=== PATIENT | male | born 1960 | race Caucasian/White ===

== ENCOUNTER 2022-10-09 11:42 | Emergency (ER) | payer OTHER ==
--- OUTSIDE RECORDS SUMMARY | 2022-10-09 11:46 | XMS REPORT | Continuity of Care Document ---
:1960 Author Organization [facility] t Address [address] [place] [address] Care Team Providers Name Role Phone Serafin SHARPE, Ata Stafford Primary Care Physician Yissel SHARPE, Prem Cope Attending Clinician Abeba Atkinson RN Attending Clinician BETI COLE Attending Clinician Unavailable Dexter Andrade MD Attending Clinician Beti Cole MD Attending Clinician Carlos Sow MD Attending Clinician Doctor Unassigned, [place] Attending Clinician Unavailable Pcp, Patient Does Not Have A Attending Clinician [phone] Lab, Adc Fam Pob I Attending Clinician Unavailable Harjit Sparks Attending Clinician HARJIT BADILLO Attending Clinician Unavailable BETI COLE Admitting Clinician Unavailable Beti Cole MD Admitting Clinician Payers Payer Name Policy Type Policy Number Effective Date Expiration Date S ource Problems Condition Condition Condition Status Onset Resolution Last Treating Co mments Source Name Details Category Date Date Treatment Clinician Date COVID-19 COVID-19 Disease Active 2019-10 Unive rs 2-27 ity of 00:00: [address] Acute Acute Disease Active 2019-10 Univers respirator respirator 2- it y of y disease y disease 00:00: Stacia joyce due to due to 00 Medical COVID-19 COVID-19 Branch virus virus No known No known Disease Metho di active active st problems problems Hospit a l Allergies, Adverse Reactions, Alerts Allergy Allergy Status Severity Reaction(s) Onset Inactive Treating Comm ents Source Name Type Date Date Clinician NO KNOWN Drug Active Univers ALLERGIE Class ity of S [facility] Family History Family Member Diagnosis Comments Start Date Stop Date Source Natural father No Known Problems Met [facility] Natural mother No Known Problems Met [facility] Social History Social Habit Start Date Stop Date Quantity Comments Source Exposure to Yes [facility] SARS-CoV2 [facility] (event) Branch History SDOH Mandaen Alcohol Frequency Hospita l History SDCT [facility]anda[facility] Alcohol Std Hospital Drinks History [facility] Mandaen Alcohol Binge Hospital Alcohol intake 2020-12-26 2020-12-26 Current drinker Metho dist 00:00:00 00:00:00 of [facility] (finding) Alcohol Comment 2017-07-04 2017-07-04 socially Mandaen 00:00:00 00:00:00 Hospital Tobacco use and 2017-05-26 2017-05-26 Smokeless tobacco Me [facility] exposure 00:00:00 00:00:00 non-user Hospital Sex Assigned At [birth year] Mandaen 00:00:00 00:00:00 Hospital Smoking Status Start Date Stop Date Source Unknown if ever smoked Universit y of [facility] Never smoker [facility] Medications Ordered Filled Start Stop Current Ordering Indication Dosage Frequency Signature Comments Components Source Medication Medication Date Date Medication? Clinician (SIG) Name Name cyclobenzap Yes [id number] 10mg QD Take 1 Methodi rine 2-26 tablet (10 st (FLEXERIL) 00:00: mg total) Ho spita 10 mg 00 by mouth l tablet nightly as needed for muscle spasms. cyclobenzap Yes [id number] 10mg QD Take 1 Methodi rine 2-26 tablet (10 st (FLEXERIL) 00:00: mg total) Ho spita 10 mg 00 by mouth l tablet nightly as needed for muscle spasms. predniSONE 2020- No [id number] Take 2 Methodi (DELTASONE) 2- 03-[address] 20 mg 00:00: 05:59 (40 mg Hospita tablet 00 :00 total) by l mouth daily for 7 days, THEN 1 tablet (20 mg total) daily for 7 days. predniSONE 2020- No [id number] Take 2 Methodi (DELTASONE) 12-08- tablets st 20 mg 00:00: 00:00 (40 mg Hospita tablet 00 :00 total) by l mouth daily for 7 days, THEN 1 tablet (20 mg total) daily for 7 days. cyclobenzap 2020- No [id number] 10mg QD Take 1 Methodi rine 12-08 tablet (10 st (FLEXERIL) 00:00: 00:00 mg total) H ospita 10 mg 00 :00 by mouth l tablet nightly as needed for muscle spasms. lisinopriL 2019-10 Yes 10mg Take 10 mg U nivers 10 mg 2-29 by mouth ity of tablet 18:41: daily. [address] lisinopriL 2019-10 Yes 10mg Take 10 mg U nivers 10 mg -29 by mouth ity of tablet 18:41: daily. [address] lisinopriL 2019-10 Yes 10mg 10 mg, Unive rs (PRINIVIL,Z - Oral, ity of ESTRIL) 15:00: DAILY, [place] tablet 10 00 First dose Medi berhane mg on [facility] 10/10/20 at 0900, Until Discontinu ed, Routine KCL 2019-10 2020- No 40meq 40 mEq, Univers (KLOR-CON 12-10- Oral, ONCE ity of M20) tablet 14:00: 14:16 NOW, 1 Jus as 40 mEq 00 :00 dose, [facility] 10/09/20 Branch at 0800, Routine melatonin 2019-10 Yes 3mg 3 mg, Univers (MELATIN) 12-10 Oral, QHS, ity of tablet 3 mg 03:00: First dose [facility] 10/08/20 Branch at 2100, Until Discontinu ed, Routine remdesivir 2019-10 2020- No 100mg 100 mg, IV Univers 100 mg in 12-09 Infusion, ity of NaCl 0.9% 19:35: 19:44 Q24H, [place] ([place] 250 mL 25 :00 doses, Medica l infusion First dose Branc h on [place] 10/08/20 at 1345, Last dose on Fri10/11/20 at 1345, 250 mL
Lucretia ent informed of their inclusion in the Immtrac2 database for 5 years for purposes of emergency use of remdesivir . Yes
Con sent to extend their inclusion in the database obtained: Yes diphenhydrA 2019-10 Yes 25mg 25 mg, Univ ers MINE 12-09 Oral, ity of (BENADRYL) 19:07: QHSPRN[place] 25 55 Starting Medica l mg [facility] 10/08/20 at 1307, Until Discontinu ed, Routine, Sleep enoxaparin 2019-10 Yes 40mg 40 mg, Unive rs (LOVENOX) 12-08 Subcutaneo ity of injection 23:00[place] 00 First dose Medical on [facility] 10/07/20 at 1700, Until Discontinu ed, Routine lactated 2019-10 2020- No 1000mL at 999 Univ ers ringers IV 12-08 12- mL/hr, ity of infusion 21:30: 21:10 1,000 mL, Jus as 1,000 mL 00 :00 Intravenou Medic al s, ONCE, 1 Branch dose, [facility] 10/07/20 at 1530, Routine ibuprofen 2019-10 Yes 400mg 400 mg, Univ ers (IBU) 12-08 Oral, ity of tablet 400 20:14: Q6HPRN, [place] mg 23 Starting Medical [facility] 10/07/20 at 1414, Until Discontinu ed, Routine, fever, alternate with tylenol LISINOPRIL 2019-10 2020- No Take by Uni vers ORAL 12-08 mouth. ity of 20:02: 00:00 [place] 48 :00 Medical Branch lisinopriL 2019-10 2020- No Take by Uni vers 1 mg/mL 12-08 mouth. ity of Soln 20:02: 00:00 [place] 45 :00 Medical Branch LISINOPRIL 2019-10 Yes Take by Univ ers ORAL 12-08 mouth. ity of 19:39: [address] Branch LISINOPRIL 2019-10 Yes Take by Univ ers ORAL - mouth. ity of 19:39: [address] Branch traMADoL 2020-1 2020- No 50mg 50 mg, Univer s (ULTRAM) 12-08 Oral, ity of tablet 50 19:39: 19:38 Q8HPRN, [place] mg 27 :27 Starting Medical Sat Branch 10/07/20 at 1339, Until 10/09/20 at 1338, Routine, Pain (scale 4-6) acetaminoph 2019-10 Yes 650mg 650 mg, Un janet en 12-08 Oral, ity of (TYLENOL) 19:39: Q6HPRN, [place] tablet 650 16 Starting Medic al mg Sat Branch 10/07/20 at 1339, Until Discontinu ed, Routine, Pain (scale 1-3), fever dextrometho 2019-10 Yes 10mL 10 mL, Univ ers rphan-guaif 12-08 Oral, ity of enesin 19:37: Q6HPRN, [place] (ROBITUSSIN 17 Starting Medi berhane DM) 10-100 [facility] Branch mg/5 mL 10/07/20 solution 10 at 1337, mL Until Discontinu ed, Routine, Cough albuterol-i 2019-10 Yes 1{puff} 1 Puff, Univers pratropium 12-08 Inhalation ity of (COMBIVENT 19:15: , Q6H, [place] RESPIMAT) 00 First dose Medi berhane 20-100 on Sat Branch mcg/actuati 10/07/20 on inhaler at 1315, 1 Puff Until Discontinu ed, Routine
Is this order for a patient with suspected or confirmed COVID-19 infection? Yes acetaminoph 2019-10- No 975mg 975 mg, U nivers en 12-08 Oral, ity of (TYLENOL) 14:15: 13:08 ONCE, [place] tablet 975 00 :00 dose, Sat Medi berhane mg 10/07/20 Branch at 0815, JOHN Vital Signs Vital Name Observation Time Observation Value Comments Source Systolic blood 2020-10-10 14:23:00 137 mm[Hg] Univer sity of pressure [facility] Diastolic blood 2020-10-10 14:23:00 83 mm[Hg] Unive rsity of pressure [facility] Heart rate 2020-10-10 14:23:00 64 /min [facility] Body temperature 2020-10-10 14:23:00 37.11 Chen [facility] Respiratory rate 2020-10-10 14:23:00 18 /min [facility] Oxygen saturation in 2020-10-10 14:23:00 94 /min [facility] Arterial blood by [facility] Pulse oximetry Branch Body weight 2020-10-07 12:59:00 99.791 kg [facility] Procedures Procedure Date / Time Performing Clinician Source Performed XR THORACIC SPINE 2 VW 2020-12-08 20:17:44 Prem Caruso [facility] EXTRA TUBE LAV 2020-10-09 10:40:00 Beti Cole [facility] HEPATIC FUNCTION PANEL 2020-10-09 10:40:00 [id number] (ALB,T.PRO,BILI [place] T,BU/BC,ALT,AST,ALK PHOS) BASIC METABOLIC PANEL 2020-10-09 10:40:00 Sow [facility] (NA, K, CL, CO2, GLUCOSE, Medica l Branch BUN, CREATININE, CA) SEDIMENTATION RATE 2020-10-08 11:25:00 [facility] 2020-10-07 20:12:00 Sow [facility] MRSA / MSSA SCREEN BY 2020-10-07 20:12:00 [facility] DE[facility]NA[facility] 2020-10-07 20:12:00 Sow [facility] MAGNESIUM 2020-10-07 20:12:00 Shaikh [facility] C-REACTIVE PROTEIN 2020-10-07 20:12:00 Shaikh [facility] D-DIMER 2020-10-07 20:12:00 [facility] CHEST 1 2020-10-07 13:55:27 Dexter Andrade [place] o f [facility] BLOOD CULTURE SCREEN 2020-10-07 13:10:00 Dexter Andrade [facility] LACTIC ACID WHOLE BLOOD 2020-10-07 13:09:00 Dexter Andrade [facility] COVID-19 (ID NOW RAPID 2020-10-07 13:09:00 Dexter Andrade [facility] TESTING) Medical Branch LAB ONLY COVID 2020-10-07 13:09:00 Dexter Andrade [facility] INTERPRETATION [facility] ADC,CLC OR LCC ONLY - 2020-10-07 13:09:00 Dexter Andrade [facility] INFLUENZA A & B DIRECT Medical [place] ANTIGEN N-TERMINAL PRO-BNP 2020-10-07 13:06:00 Shaikh [facility] PHOSPHORUS 2020-10-07 13:06:00 [facility] FERRITIN SERUM 2020-10-07 13:06:00 [facility] TROPONIN I 2020-10-07 13:06:00 Dexter Andrade [facility] HEPATIC FUNCTION PANEL 2020-10-07 13:06:00 Dexter Andrade [facility] ([id number]) (ALB,T.PRO,BILI Medical Branch T,BU/BC,ALT,AST,ALK PHOS) BASIC METABOLIC PANEL 2020-10-07 13:06:00 Dexter Andrade [facility] (NA, K, CL, CO2, GLUCOSE, Medica l Branch BUN, CREATININE, CA) CBC WITH DIFF 2020-10-07 13:06:00 Dexter Andrade [facility] PROTHROMBIN TIME / INR 2020-10-07 13:06:00 Dexter Andrade [facility] ACTIVATED PARTIAL 2020-10-07 13:06:00 Dexter Andrade [facility] THRMPLAS CHANDA [facility] Branch HB ECG ROUTINE & RHYTHM 2020-10-07 13:04:06 Dexter Andrade [facility] NOTICE OF PRIVACY 2020-10-07 12:50:56 Doctor Fredis [facility] PRACTICES [place] [facility] [place] CONSENT/REFUSAL FOR 2020-10-07 12:50:46 Doctor Fredis [facility] DIAGNOSIS AND TREATMENT [place] [facility] [place] HOSPITAL ADMISSION 2020-10-07 06:01:00 Doctor Fredis [facility] Name [facility] [place] Plan of Care Planned Activity Planned Date Details Comments Source Future Scheduled 2022-09-28 COVID-19 VACCINE (#1) [facility] Test 05:29:22 [code = COVID-19 VACCINE (#1)] Future Scheduled 2022-09-28 Hepatitis C screening [facility] Test 05:29:22 (procedure) [code = 627149081] Future Scheduled 2022-09-28 COLONOSCOPY SCREENING [facility] Test 05:29:22 [code = COLONOSCOPY SCREENING] Future Scheduled 2022-09-28 SHINGLES VACCINES (1 Met [facility] Test 05:29:22 of 2) [code = SHINGLES VACCINES (1 of 2)] Future Scheduled 2022-09-28 INFLUENZA VACCINE [facility] Hospital Test 05:29:22 [code = INFLUENZA VACCINE] Future Scheduled 2021-08-15 COVID-19 VACCINE (1) Met [facility] Test 21:50:00 [code = COVID-19 VACCINE (1)] Future Scheduled 2021-08-15 Hepatitis C screening [facility] Test 21:50:00 (procedure) [code = 003263865] Future Scheduled 2021-08-15 COLONOSCOPY SCREENING [facility] Test 21:50:00 [code = COLONOSCOPY SCREENING] Future Scheduled 2021-08-15 SHINGLES VACCINES Method is Hospital Test 21:50:00 (#1) [code = SHINGLES VACCINES (#1)] Future Scheduled 2021-08-15 INFLUENZA VACCINE Method [facility] Hospital Test 21:50:00 [code = INFLUENZA VACCINE] Encounters Start End Encounter Admission Attending Care Care Encounter Source Date/Time Date/Time Type Type Clinicians Facility Department ID 2020-12-26 2020-12-26 Office Prem Caruso 1.2.840.1 [id number] Methodi 09:44:54 10:20:25 [address]y [address]807.1.[address] 3.430.2.7 Hospit a .3.431149 l .8 2020-12-26 2020-12-26 Travel 1.2.840.1 [id number] [id number] Methodi 00:00:00 00:00:[address] 3.430.2.7 0.2.7.3.698 Ho spita .3.647102 084.8 l .8 2020-12-08 2020-12-08 Office Yissel Prem 1.2.840.1 [id number] Methodi 13:55:03 14:47:38 Visit Anatoliy 93318.1.[address] 3.430.2.7 Hospit a .3.136536 l .8 2020-12-08 2020-12-08 Outpatient PREM CARUSO [facility] [id number] Jessie 00:00:00 00:00:[address] 2020-12-08 2020-12-08 Travel 1.2.840.1 1.2.811.618 [id number] Methodi 00:00:00 00:00:[address] 3.430.2.7 0.2.7.3.698 Ho spita .3.007586 084.8 l .8 2020-10-11 2020-10-11 Transition Sola Atkinson 1.2.840.114 [id number] Univers 00:00:00 00:00:00 of Care Abeba Alvarado 350.1.13.10 i ty [place] [id number] [facility] 403 Branch 2020-10-07 2020-10-10 Inpatient X GOLISANO [facility] [id number] Univers 06:57:00 12:30:00 BETI love [facility] 2020-10-07 2020-10-10 [facility] Dexter Andrade 1.2.840.1 [id number] Univers 06:57:00 12:30:00 Encounter Beti Cole 350.1.13.10 ity of [facility] 4.2.7.2.686 Jus as [phone] [facility] 099 Branch 2020-10-07 2020-10-07 Abstract CURLY Sow 1.2.840.114 [id number] Univers 00:00:00 00:00:00 Carlos PATTERSON 350.1.13.[address] [facility] 4.2.7.2.686 Jus as [id number] [address] 2020-10-07 2020-10-07 Patient CURLY Sow 1.2.840.114 [id number] Univers 00:00:00 00:00:00 Outreach Abdcastro PATTERSON 350.1.13.10 ity of HOSPITAL 4.2.7.2.686 Jus as [id number] [address] 2020-10-07 2020-10-07 Orders Doctor CURLY 1.2.840.114 [id number] Univers 00:00:00 00:00:00 Only Unassigned, YESENIA 350.1.13.10 ity of [place] [facility] 4.2.7.2.686 Jus as [id number] [address] 2020-09-28 2020-09-28 Telephone Pcp, CURLY 1.2.700.411 [id number] Univers 00:00:00 00:00:00 Patient YESENIA 350.1.13.10 it y of Does Not HOSPITAL 4.2.7.2.686 Te [facility] Have A [id number] [address] 2020-09-27 2020-09-27 Laboratory Lab, Adc Fam Pob I [facility] 1.2. 840.114 [id number] Univers 16:05:34 16:25:34 Only Harjit Badillo [facility] 350.1.13.10 ity of [place] 4.2.7.2.686 Jus as Professio [id number] [address] Office Building One 2020-09-27 2020-09-27 Outpatient R ABY [facility] [id number] Univers 16:00:00 16:00:00 HARJIT sanchezUT [facility] Results Test Description Test Time Test Comments Results Result Sour e Comments LAB ONLY COVID 2020-09-13 [facility] InterpretationInte Jorge Luis eligio Medical 23:40:00 rpretation/Recomme [place] ndations: Molecular NAAT Tests for Active Infection with the SARS-CoV-2 Virus: This result indicates a second test was positive, subsequent to an initial negative test for the SARS-CoV-2 virus that causes COVID-19 illness. This result indicates that the patient has been infected with the SARS-CoV-2 virus. The patient should be considered infectious and able to transmit the virus within the first 10 days after symptom onset in jujn-mm-qckrckjp illness and within the first 20 days after symptom onset in critical illness and/or severe immunocompromise. Asymptomatic patients are considered infectious for the first 10 days subsequent to the initial positive test result. From the onset of symptoms, if any, this result is likely to remain positive for 2 to 4 weeks. Tests for IgM and/or IgG Antibodies to SARS-CoV-2 Virus: Testing for IgM and IgG antibodies 1-3 weeks after illness onset will indicate whether the patient has produced antibodies to the virus. At this time, it is not known if the production of antibodies - specifically IgG antibodies - indicates whether the patient is immune to future infections with the SARS-CoV-2 virus. Interpretation Result Comments:These interpretation comments are based upon all COVID-19 testing the patient has had at [facility], including molecular NAAT testing (more commonly known as PCR testing and Rapid ID Now testing) and antibody testing. It does not take into account any testing that a patient has had outside of the [facility] medical record. [facility] LABORATORY SERVICESCOVID LdnzvtfYQJV-EcA-1 NAAT (no units) ? ? Date ? Value ? 09/27/2020 ? Not Detected ? SARS-CoV -2 Rapid ID NOW (no units) ? ? Date ? Value ? 10/07/2020 ? Positive (A) ? [facility] BASIC METABOLIC PANEL (NA, K, CL, CO2, GLUCOSE, BUN, 2020-09 11:30:00 CREATININE, CA) Test Item Value Reference Range Interpretation Comme nts NA (test code = 1235466809) 136 mmol/L 135-145 K (test code = 0648216234) 3.3 mmol/L 3.5-5 L CL (test code = 8617935300) 103 mmol/L 98-108 CO2 TOTAL (test code = 2696909890) 29 mmol/L 23-31 AGAP (test code = 8648063016) 2-16 BUN (test code = 4755784700) 21 mg/dL 7-23 GLUCOSE (test code = 8444126526) 93 mg/dL 70-110 CREATININE (test code = 0.60 mg/dL 0.6-1.25 5686317502) CALCIUM (test code = 3715300656) 8.2 mg/dL 8.6-10.6 L eGFR Calculation (Non- mL/min/1.73m2 Tunisian) (test code = 3094429904) eGFR Calculation ( mL/min/1.73m2 [place]ian) (test code = 6469763771) KATHLEEN (test code = KATHLEEN) Association of Glomerular Filtration Rate (GFR) and Staging of Kidney Disease* + +-------- + ------+| GFR (mL/min/1.73 m2) ?| With Kidney Damage ?| ?Without Kidney Damage+ +-- + +| ?>90 ?| ?Stage one ?| ? Normal ?+ +------- + -------+| ?60-89 ?| ?Stage two ?| ? Decreased GFR ? + +-------- + ------+| ?30-59 ?| ?Stage three ?| ? Stage three ? + +-------- + ------+| ?15-29 ?| ?Stage four ? | ? Stage four ?+ +------- + -------+| ?<15 (or dialysis) ? ?| ?Stage five ? | ? Stage five ?+ +------- + -------+ *Each stage assumes the associated GFR level has been in effect for at least three months. ?Stages 1 to 5, with or without kidney disease, indicate chronic kidney disease. Notes: Determination of stages one and two (with eGFR >59mL/min/1.73 m2) requires estimation of kidney damage for at least three months as defined by structural or functional abnormalities of the kidney, manifested by either:Pathological abnormalities or Markers of kidney damage (including abnormalities in the composition of the blood or urine or abnormalities in imaging tests). Lab Interpretation (test code = Abnormal 27934-9) [facility] (ALB,T.PRO,BILI T,BU/BC,ALT,AST,ALK PHOS)2020-10-09 11:30:00 Test Item Value Reference Range Interpretation Comments TOTAL BILI (test code = 0579306297) 0.6 mg/dL 0.1-1.1 BILI UNCON (test code = 8088839385) 0.5 mg/dL 0.1-1.1 BILI CONJ (test code = 8418250147) 0.0 mg/dL 0-0.3 T PROTEIN (test code = 4879438263) 5.7 g/dL 6.3-8.2 L ALBUMIN (test code = 0381108452) 3.0 g/dL 3.5-5 L ALK PHOS (test code = 6123382546) 86 U/L 34-122 ALTv (test code = 1742-6) 62 U/L 5-50 H AST(SGOT) (test code = 9147804459) 41 U/L 13-40 H Lab Interpretation (test code = Abnormal 43398-7) [facility] / MSSA SCREEN BY PCR, [id number] 18:31:00 Test Item Value Reference Range Interpretation Comments MSSA Screen by Geetha CAIN (test code Negative Negative = 29110-5) MRSA/MSSA Positive? (test code = No No [id number]) Lab Interpretation (test code = Normal 80482-5) [facility]-REACTIVE [id number] 16:38:00 Test Item Value Reference Range Interpretation Comments CRP (test code = 8316712105) 16.4 mg/dL <0.8 H Lab Interpretation (test code = Abnormal 38068-2) [facility]EDIMENTATION [id number] 12:54:00 Test Item Value Reference Range Interpretation Comments ESR (test code = See_Comment H [Automated message] [id number]) The system [employer] generated this result transmitted ref erence range: 0 - 10 m m/HR. The reference r morena was not used to interpret this result as normal/abnor mal. Lab Interpretation (test Abnormal code = 03687-3) [facility]IN2020-12-26 21:41:00 Test Item Value Reference Range Interpretation Comments Procalcitonin (test 0.13 ng/mL <0.07 H code = 5038971741) KATHLEEN (test code = KATHLEEN) INTERPRETATION OF PROCALCITONIN RESULTS IN ADULTS >= 18 YEARS OF AGE Initiation and discontinuation of antibiotics on patients with suspected or confirmed Lower Respiratory Tract Infection in Adults >= 18 years of age. + +-------- --------+ + -----+|Procalcitonin |Interpretation ?|Antibiotic ? ? |Considerations ? |ng/mL ? | ?|recommendation | ? + +-------- --------+ + -----+| <0.1 ? | Bacterial ? ? ?| Strongly ? ? ?| ? | ?| infection very | discouraged ? | Overruling: ? | ?| unlikely ? ? ? | ? | ? Clinically unstable ? ? ? + +-------- --------+ + ? High risk for adverse ? ? | <0.25 ?| Bacterial ? ? ?| Discouraged ? | ? outcome ? | ?| infection ? ? ?| ? | ? SEE IMPORTANT NOTE ?| ?| unlikely ? ? ? | ? | ? + +-------- --------+ + -----+| >=0.25 ? ? ? | Bacterial ? ? ?| Encouraged ? ?| ? | ?| infection ? ? ?| ? | ? | ?| likely ? | ? | Consider treatment failure ?+ +------- ---------+ -+ if levels does not decrease | >0.5 ? | Bacterial ? ? ?| Strongly ? ? ?| appropriately ? | ?| infection very | encouraged ? ?| ? | ?| likely ? | ? | ? + +-------- --------+ + -----+ Discontinuation of antibiotics in high-acuity patients with suspected or confirmed sepsis in Adults >= 18 years of age. + +-------- --------+ + -----+|Procalcitonin |Interpretation ?|Antibiotic ? ? |Considerations ? |ng/mL ? | ?|recommendation | ? + +-------- --------+ + -----+| <0.25 ?| Bacterial ? ? ?| Strongly ? ? ?| ? | ?| infection very | discouraged ? | Overruling: ? | ?| unlikely ? ? ? | ? | ? Clinically unstable ? ? ? + +-------- --------+ + ? High risk for adverse ? ? | <0.5 or drop | Bacterial ? ? ?| Discouraged ? | ? outcome ? | >80% from ? ?| infection ? ? ?| ? | ? SEE IMPORTANT NOTE ?| highest PCT ?| unlikely ? ? ? | ? | ? | level ?| ?| ? | ? + +-------- --------+ + -----+| >=0.5 ?| Bacterial ? ? ?| Encouraged ? ?| ? | ?| infection ? ? ?| ? | ? | ?| likely ? | ? | Consider treatment failure ?+ +------- ---------+ -+ if levels does not decrease | >1.0 ? | Bacterial ? ? ?| Strongly ? ? ?| appropriately ? | ?| infection very | encouraged ? ?| ? | ?| likely ? | ? | ? + +-------- --------+ + -----+ Percentage of drop of Procalcitonin calculation for Discontinuation of antibiotics in high-acuity patients with suspected or confirmed sepsis in Adults >= 18 years of age. ? Procalcitonin highest{}-Procalcitonin current{}Delta Procalcitonin = x100% ? Procalcitonin current {} IMPORTANT NOTE: Procalcitonin may be elevated without bacterial infection by physiologic stress related to trauma, fraser, chronic dialysis, metastatic cancer, surgery in the past seven days, malaria, some fungal infections, and some forms of vasculitis. The interpretation algorithm may not apply to patients with immunosuppression (equivalent of >10 mg of prednisone daily), HIV with CD4 cell count < 350 cells/mm3, active malignancy on systemic chemotherapy, solid organ transplant or hematopoietic stem cell transplantation, or hospital acquired pneumonia. Additionally, some clinical trials of procalcitonin have excluded patients with shock requiring vasopressor use, acute respiratory failure requiring mechanical ventilation, or those with known lung abscess/empyema. For further information please refer to:[email or web address] Lab Interpretation Abnormal (test code = 73724-3) [facility]ERRITIN [id number] 20:51:00 Test Item Value Reference Range Interpretation Comments FERRITIN (test code = 582.0 ng/mL 18-464 H 7376838682) KATHLEEN (test code = KATHLEEN) Biotin has been reported to cause a negative bias, interpret results relative to patient's use of biotin. Lab Interpretation (test Abnormal code = 29715-0) [facility] WestLACTATE [id number] 20:47:00 Test Item Value Reference Range Interpretation Comments LDH (test code = 5446236879) 791 U/L 300-600 H Lab Interpretation (test code = Abnormal 58731-8) [facility] WestMAGNESIUM2020-12-26 20:47:00 Test Item Value Reference Range Interpretation Comments MAGNESIUM (test code = 4503210555) 2.1 mg/dL 1.7-2.4 Lab Interpretation (test code = Normal 05649-5) [facility] WestD-[id number] 20:45:00 Test Item Value Reference Interpretation Comments Range D-DIMER (test code = See_Comment H [Autom ated 5354024510) message] The system which generated this result transmitted reference range : <0.50 ?g/mL (FEU). The reference range was not used to interpret this result as normal/abnormal . KATHLEEN (test code = This test may be KATHLEEN) used in conjunction with a clinical pretest probability (PTP) assessment model to exclude venous thromboembolism (VTE) in patients suspected of deep venous thrombosis (DVT) and pulmonary embolism (PE) A D-Dimer value less than 0.50 ?g/ml (FEU) has a negative predicative value of 96 to 100% (95% CI)and 97 to 100% (95% CI) as an aid in the diagnosis of deep vein thrombosis (DVT) and pulmonary embolism when there is low or moderate pretest probability of PE or DVT. D-Dimer values are expressed in initial fibrinogen equivalent units (FEU)" The assay results should be used with other information, including the clinical context, in forming a diagnosis. Lab Interpretation Abnormal (test code = 43834-5) [facility] WestN-TERMINAL [id number] 20:25:00 Test Item Value Reference Range Interpretation Comments NT-proBNP (test code 385 pg/mL See_Comment H [Autom ated = 6548748028) message] The system which generated this result transmitted reference range : <=125. The reference range was not used to interpret this result as normal/abnormal . KATHLEEN (test code = KATHLEEN) Biotin has been reported to cause a negative bias, interpret results relative to patient's use of biotin. Lab Interpretation Abnormal (test code = 07528-8) [facility] WestPHOSPHORUS2020-12-26 20:15:00 Test Item Value Reference Range Interpretation Comments PHOSPHORUS (test code = 2846218075) 2.6 mg/dL 2.5-5 Lab Interpretation (test code = Normal 64609-7) [facility] 1 [id number] 14:43:48 Hazy bilateral airspace opacities are noted, suggestive of multifocalatypical viral pneumonia such as Covid 19. Preliminary Report Dictated by Resident: Dov Montero MD., have reviewed this study and agree withthe above report.XR CHEST 1 VW HISTORY: 59 years-old; Male;dyspnea , Covid exposure, Covid positive COMPARISON: None FINDINGS: Scattered bilateral hazy airspace opacities are noted. There is no pleuraleffusion or pneumothorax.The cardiomediastinal silhouette is normal.No acute osseous abnormality is identified. Remodeling deformity of theposterior-lateral left seventh rib. [facility], Radiant Results Inft User - 10/07/2020 8:44 AM CSTXR CHEST 1 VWHISTORY: 59 years-old; Male; dyspnea , Covid exposure, Covid positiveCOMPARISON: NoneFINDINGS:Scattered bilateral hazy airspace opacities are noted. There is no pleuraleffusion or pneumothorax.The cardiomediastinal silhouette is normal.No acute osseous abnormality is identified. Remodeling deformity of theposterior-lateral left seventh rib.IMPRESSIONHazy bilateral airspace opacities are noted, suggestive of multifocalatypical viral pneumonia such as Covid 19.Preliminary Report Dictated by Resident: Dov Jacobo MD., have reviewed this study and agree withthe above report.[facility] WestADC,CLC OR LCC ONLY - INFLUENZA A & B DIRECT [id number] 13:43:00 Test Item Value Reference Range Interpretation Comments Influenza A (test code = 25195-2) Negative Negative Influenza B (test code = 24364-4) Negative Negative Lab Interpretation (test code = Normal 66445-6) [facility] WestTroponin [id number] 13:41:00 Test Item Value Reference Range Interpretation Comments TROPONIN I (test 0.027 ng/mL See_Comment [Automated code = 1597937530) message] The system which generated this result transmitted reference range : <=0.034. The reference range was not used to interpret this result as normal/abnormal . KATHLEEN (test code = Equal or Less than KATHLEEN) 0.034 ng/ml---Normal ?Note: Cardiac troponin begins to rise 3-4 hours after the onset of ischemia. Repeat in 4-6 hours if the sample was drawn within 3-4 hours of the onset of the symptom and found normal. Between 0.035 and 0.120 ng/mL--- Borderline. Questionable myocardial injury or necrosis ? ?Note: Serial measurement may be necessary to confirm or exclude the diagnosis of myocardial injury or necrosis; Clinical correlation (symptoms, EKGs, imaging studies, and others) required; Repeat in 4-6 hours if clinically indicated. ? Equal or Higher than 0.121 ng/mL---Abnormal. Myocardial Injury or Necrosis Likely ? Biotin has been reported to cause a negative bias, interpret results relative to patient's use of biotin. ? Lab Interpretation Normal (test code = 46236-6) [facility] WestCOVID-19 (ID NOW RAPID TESTING)2020-10-07 13:32:00 Test Item Value Reference Range Interpretation Comments SARS-CoV-2 Rapid ID NOW Positive Not Detected A (test code = 57694-0) KATHLEEN (test code = KATHLEEN) ID NOW COVID-19 Assay is an isothermal nucleic acid amplification test intended for the qualitative detection of nucleic acid from SARS-CoV-2 viral RNA in nasopharyngeal (VALIDATION ANALYST) specimens. It is used under Emergency Use Authorization (EUA) by FDA. The limit of detection (LOD) of the assay is 125 Genome Equivalents/mL. A positive result is indicative of the presence of SARS-CoV-2 RNA. ?Clinical correlation with patient history and other diagnostic information is necessary to determine patient infection status. A negative (Not Detected) result does not preclude SARS-CoV-2 infection. In patients with clinical symptoms and other tests that are consistent with SARS-CoV-2 infection, negative results should be treated as presumptive negative and a new specimen should be tested with alternative PCR molecular test. Invalid: Please collect a new specimen for repeat patient testing if clinically indicated. Lab Interpretation Abnormal (test code = 33152-6) [facility] (NA, K, CL, CO2, GLUCOSE, BUN, CREATININE, CA)2020-10-07 13:30:00 Test Item Value Reference Range Interpretation Comments NA (test code = 140 mmol/L 135-145 8213623001) K (test code = 3.1 mmol/L 3.5-5 L 9956038432) CL (test code = 98 mmol/L 98-108 3741050112) CO2 TOTAL (test code = 33 mmol/L 23-31 H 8898713150) AGAP (test code = 2-16 6617078889) BUN (test code = 18 mg/dL 7-23 6816164967) GLUCOSE (test code = 124 mg/dL 70-110 H 6865524165) CREATININE (test code = 0.91 mg/dL 0.6-1.25 6541869016) CALCIUM (test code = 9.5 mg/dL 8.6-10.6 8585669134) eGFR Calculation mL/min/1.73m2 (Non-) (test code = 3106237271) eGFR Calculation mL/min/1.73m2 () (test code = 5385199369) KATHLEEN (test code = KATHLEEN) Association of Glomerular Filtration Rate (GFR) and Staging of Kidney Disease* + --+ --+ ------+| GFR (mL/min/1.73 m2) ?| With Kidney Damage ?| ?Without Kidney Damage+ --------+ --------+ +| ?>90 ?| ?Stage one ?| ? Normal ?+ ---+ ---+ -------+| ?60-89 ?| ?Stage two ?| ? Decreased GFR ? + --+ --+ ------+| ?30-59 ?| ?Stage three ?| ? Stage three ? + --+ --+ ------+| ?15-29 ?| ?Stage four ? | ? Stage four ?+ ---+ ---+ -------+| ?<15 (or dialysis) ? ?| ?Stage five ? | ? Stage five ?+ ---+ ---+ -------+ *Each stage assumes the associated GFR level has been in effect for at least three months. ?Stages 1 to 5, with or without kidney disease, indicate chronic kidney disease. Notes: Determination of stages one and two (with eGFR >59mL/min/1.73 m2) requires estimation of kidney damage for at least three months as defined by structural or functional abnormalities of the kidney, manifested by either:Pathological abnormalities or Markers of kidney damage (including abnormalities in the composition of the blood or urine or abnormalities in imaging tests). Lab Interpretation Abnormal (test code = 79333-0) [facility] WestHepatic Function Panel (ALB, T.PRO, BILI T, BU/BC, ALT, AST, ALK PHOS)2020-10-07 13:30:00 Test Item Value Reference Range Interpretation Comments TOTAL BILI (test code = 8464136856) 0.6 mg/dL 0.1-1.1 BILI UNCON (test code = 0214156194) 0.5 mg/dL 0.1-1.1 BILI CONJ (test code = 0061824196) 0.0 mg/dL 0-0.3 T PROTEIN (test code = 6123448420) 6.7 g/dL 6.3-8.2 ALBUMIN (test code = 9975267809) 3.8 g/dL 3.5-5 ALK PHOS (test code = 2325094487) 107 U/L 34-122 ALTv (test code = 1742-6) 97 U/L 5-50 H AST(SGOT) (test code = 1006439090) 62 U/L 13-40 H Lab Interpretation (test code = Abnormal 23705-4) [facility] WestaPTT2020-12-26 13:30:00 Test Item Value Reference Range Interpretation Comments APTT Patient (test See_Comment [Automat ed code = 3173-2) message] The system which generated this result transmitted reference range : 23 - 38 Seconds . The reference range was not used to interpr et this result as normal/abnormal . KATHLEEN (test code = KATHLEEN) The [facility] patient population mean normal value for aPTT is 30 seconds. Lab Interpretation Normal (test code = 28303-4) [facility] WestProthrombin Time (PT) / [id number] 13:28:00 Test Item Value Reference Range Interpretation Comments PROTIME PATIENT (test See_Comment [Auto mated message] code = 5964-2) The system wh ich generated this result transmitted ref erence range: 12.0 - 1 4.7 Seconds. The re ference range was not u sed to interpret this result as normal/abnor mal. INR (test code = 6301-6) Nor mal INR <1.1; Warfarin Therap eutic range 2.0 to 3. 0 or 2.5 to 3.5, dep ending upon the indica tions. Lab Interpretation (test Normal code = 90299-8) [facility] WestLactic Acid Whole [id number] 13:23:00 Test Item Value Reference Range Interpretation Comments LACTIC ACID (test code = 2.15 mmol/L 9411710084) [facility] WestCB with [id number] 13:18:00 Test Item Value Reference Range Interpretation Comments WBC (test code = See_Comment [Automated 6690-2) message] The sy stem which generated this result transmitted reference range : 4.20 - 10.70 10*3/?L. The reference range was not used to interpret this result as normal/abnormal . RBC (test code = See_Comment [Automated 789-8) message] The sy stem which generated this result transmitted reference range : 4.26 - 5.52 10*6/?L. The reference range was not used to interpret this result as normal/abnormal . HGB (test code = 15.1 g/dL 12.2-16.4 718-7) HCT (test code = 45.1 % 38.4-49.3 4544-3) MCV (test code = 87.6 fL 81.7-95.6 787-2) MCH (test code = 29.3 pg 26.1-32.7 785-6) MCHC (test code = 33.5 g/dL 31.2-35 786-4) RDW-SD (test code = 38.6 fL 38.5-51.6 12826-6) RDW-CV (test code = 11.9 % 12.1-15.4 L 788-0) PLT (test code = See_Comment [Automated 777-3) message] The sy stem which generated this result transmitted reference range : 150 - 328 10*3/ ?L. The reference r morena was not used to interpret this result as normal/abnormal . MPV (test code = 9.7 fL 9.8-13 L 50148-5) NRBC/100 WBC (test See_Comment [Automat ed code = 7572562762) message] The system which generated this result transmitted reference range : 0.0 - 10.0 /100 WBCs. The refer ence range was not u sed to interpret th is result as normal/abnormal . NRBC x10^3 (test code <0.01 See_Comment [Auto mated = 6298124240) message] The s ystem which generated this result transmitted reference range : 10*3/?L. The reference range was not used to interpret this result as normal/abnormal . GRAN MAT (NEUT) % 89.5 % (test code = 770-8) IMM GRAN % (test code 0.30 % = 0714997368) LYMPH % (test code = 7.8 % 736-9) MONO % (test code = 2.3 % 5905-5) EOS % (test code = 0.0 % 713-8) BASO % (test code = 0.1 % 706-2) GRAN MAT x10^3(ANC) 8.03 10*3/uL 1.99-6.95 H (test code = 6240947678) IMM GRAN x10^3 (test 0.03 10*3/uL 0-0.06 code = 9737343300) LYMPH x10^3 (test code 0.70 10*3/uL 1.09-3.23 L = 731-0) MONO x10^3 (test code 0.21 10*3/uL 0.36-1.02 L = 742-7) EOS x10^3 (test code = <0.03 0.06-0.53 L 711-2) BASO x10^3 (test code <0.03 0.01-0.09 = 704-7) Lab Interpretation Abnormal (test code = 18806-8) [facility]
[2022-10-09] MEDS ORDERED: NA CHLORIDE 0.9% 1,000 ML ONE (12:51)
[2022-10-09] MEDS ORDERED: MORPHINE 4 MG/ML SYR ONE (12:51)
[2022-10-09] MEDS ORDERED: ONDANSETRON 4 MG/2 ML VIAL ONE (12:51)
[2022-10-09 13:00] LABS: Absolute Lymphocytes (CBC) 0.7 K/uL (0.7-4.9); Hematocrit 45.3 % (39.6-49.0); Lymphocytes % 5.4 % (15.3-44.8); MCV 88.9 fL (80-100); MPV 8.1 fL (7.6-11.3)
[2022-10-09 13:14] LABS: Albumin 4.2 g/dL (3.4-5.0); Bilirubin Total 0.4 mg/dL (0.2-1.0); Potassium 3.9 mmol/L (3.5-5.1); Protein, Total 7.4 g/dL (6.4-8.2)
--- NOTE | 2022-10-09 14:01 | RAD REPORT ---
EXAM DESCRIPTION: CT - Abdomen Pelvis W Contrast - 10/09/2022 1:43 pm CLINICAL HISTORY: RLQ abdominal pain COMPARISON: CT ABD PELVIS W CONTRAST dated 12/17/2014 TECHNIQUE: Biphasic, helical CT imaging of the abdomen and pelvis was performed following 100 ml non -ionic IV contrast. Oral contrast: No. All CT scans are performed using dose optimization technique as appropriate and may include automated exposure control or mA/KV adjustment according to patient size. FINDINGS: No suspicious findings in the lung bases. Liver and spleen are normal size with no focal lesions. Liver attenuation is borderline to mildly fat ty infiltrated. No pancreatic or peripancreatic abnormality. Cholecystectomy clips are present. No ab normal biliary tree dilatation. Right renal function is slightly delayed. Left-sided parapelvic cysts are present with no hydronephro sis. There is mild to moderate dilatation of the right side pelvis and calices with mild dilatation o f the right ureter down to the UVJ where there is a 2 mm calculus. No pyelonephritis or acute parench ymal process. No bladder wall thickening or bladder or abnormality seen. Prostate gland and seminal v esicles show no suspicious findings. Multiple pelvic floor phleboliths are present. No adrenal abnorm alities. No gastric dilatation gastric wall thickening seen. No acute small bowel finding identified. Appendix is normal. No acute colon finding is evident. No free air, free fluid or inflammatory stranding. N o mass or bulky lymphadenopathy. Fat extends into the origin of each inguinal canal similar to prior imaging. Right-sided hydrocele is present. No suspicious bony findings. IMPRESSION: Obstructing 2 mm stone at the right UVJ. There is mild dilatation of the ureter mild dil atation of the pelvis and calices on the right. No other acute or emergent finding. Nonacute findings detailed in the body of the report.
[2022-10-09] MEDS ORDERED: TAMSULOSIN 0.4 MG SR CAP ONE (15:06)
[2022-10-09 15:16] LABS: Urine Blood Negative (Negative); Urine Glucose Negative (Negative); Urine Protein Negative (Negative)
--- NOTE | 2022-10-09 15:40 | EDPHYS ---
Physician Documentation [facility] Name: Koko Hoff Age: 61 yrs Sex: Male : 1960 Arrival Date: 10/09/2022 Time: 11:55 Bed Treatment Private MD: ED Physician Marbin Honeycutt HPI: 10/09 12:14 This 61 yrs old Male presents to ER via Ambulatory with complaints of Abdominal Pain, pm1 Nausea. 12:14 The patient presents with abdominal pain right lower quadrant. Onset: The pm1 symptoms/episode began/occurred this morning. The symptoms do not radiate. Associated signs and symptoms: Pertinent positives: nausea, Pertinent negatives: dysuria, fever, vomiting. The symptoms are described as sharp. Modifying factors: The symptoms are alleviated by nothing, the symptoms are aggravated by nothing. Severity of pain: in the emergency department the pain is unchanged. The patient has not experienced similar symptoms in the past. The patient has not recently seen a physician. Historical: - Allergies: 12:07 No Known Allergies; ss - Home Meds: 12:07 lisinopril 20 mg Oral tab 1 tab once daily [Active]; ss - PMHx: 12:07 Hypertensive disorder; ss - PSHx: 12:07 Cholecystectomy; ss - Immunization history:: Adult Immunizations unknown. - Social history:: Smoking status: Patient denies any tobacco usage or history of. ROS: 12:14 Constitutional: Negative for fever, chills, and weight loss, Cardiovascular: Negative pm1 for chest pain, palpitations, and edema, Respiratory: Negative for shortness of breath, cough, wheezing, and pleuritic chest pain. 12:14 Back: Negative for injury and pain, MS/Extremity: Negative for injury and deformity, Skin: Negative for injury, rash, and discoloration, Neuro: Negative for headache, weakness, numbness, tingling, and seizure. 12:14 : Negative for injury, bleeding, discharge, and swelling. 12:14 Abdomen/GI: Positive for nausea, of the right lower quadrant, Negative for vomiting, diarrhea. 12:14 All other systems are negative. Exam: 12:14 Constitutional: This is a well developed, well nourished patient who is awake, alert, pm1 and in no acute distress. Head/Face: Normocephalic, atraumatic. 12:14 Back: No spinal tenderness. No costovertebral tenderness. Full range of motion. Skin: Warm, dry with normal turgor. Normal color with no rashes, no lesions, and no evidence of cellulitis. MS/ Extremity: Pulses equal, no cyanosis. Neurovascular intact. Full, normal range of motion. 12:14 Cardiovascular: Exam negative for acute changes, Rate: normal, Rhythm: regular, Pulses: no pulse deficits are appreciated. 12:14 Respiratory: Exam negative for acute changes, respiratory distress, shortness of breath. 12:14 Abdomen/GI: Inspection: obese Palpation: soft, in all quadrants, mild abdominal tenderness, in the right lower quadrant. 12:14 Neuro: Exam negative for acute changes, Orientation: is normal, Mentation: is normal, Motor: moves all fours. Vital Signs: 12:05 BP 152 / 80; Pulse 61; Resp 16; Temp 98.3(O); Pulse Ox 100% on R/A; Weight 99.79 kg; ss Height 5 ft. 10 in. (177.80 cm); Pain 5/10; 13:00 BP 140 / 66; Pulse 68; Resp 18; Pulse Ox 100% on R/A; ph 15:52 BP 138 / 72; Pulse 69; Resp 18; Temp 97.9; Pulse Ox 99% on R/A; ph 12:05 Body Mass Index 31.57 (99.79 kg, 177.80 cm) ss MDM: 12:14 Patient medically screened. pm1 14:35 Data reviewed: vital signs. Data interpreted: Pulse oximetry: on room air is 100 %. pm1 Interpretation: normal. 15:38 Counseling: I had a detailed discussion with the patient and/or guardian regarding: the pm1 historical points, exam findings, and any diagnostic results supporting the discharge/admit diagnosis, lab results, radiology results, the need for outpatient follow up, a urologist, to return to the emergency department if symptoms worsen or persist or if there are any questions or concerns that arise at home. 10/09 12:14 Order name: CBC with Diff; Complete Time: 13:10 pm1 10/09 12:14 Order name: CMP; Complete Time: 13:48 pm1 10/09 12:14 Order name: Lipase; Complete Time: 13:48 pm1 10/09 12:14 Order name: CT Abd/Pelvis - IV Contrast Only; Complete Time: 14:05 pm1 10/09 15:16 Order name: Urine Dipstick-Ancillary; Complete Time: 15:24 EDMS 10/09 12:14 Order name: IV Saline Lock; Complete Time: 12:42 pm1 10/09 12:14 Order name: Labs collected and sent; Complete Time: 12:42 pm1 10/09 12:14 Order name: Urine Dipstick-Ancillary (obtain specimen); Complete Time: 15:17 pm1 Administered Medications: 12:55 Drug: NS 0.9% 1000 ml Route: IV; Rate: 1 bolus; Site: right antecubital; ph 14:00 Follow up: Response: No adverse reaction; IV Status: Completed infusion ph 12:55 Drug: Zofran (Ondansetron) 4 mg Route: IVP; Site: right antecubital; ph 14:00 Follow up: Response: No adverse reaction ph 12:57 Drug: morphine 4 mg Route: IVP; Infused Over: 4 mins; Site: right antecubital; ph 14:00 Follow up: Response: No adverse reaction ph 15:17 Drug: Flomax (tamsulosin) 0.4 mg Route: PO; ph 16:00 Follow up: Response: No adverse reaction ph Disposition: 18:04 Co-signature as Attending Physician, Marbin Honeycutt MD I agree with the assessment and rt plan of care. Disposition Summary: 10/09/22 15:39 Discharge Ordered Location: Home pm1 Problem: new pm1 Symptoms: have improved pm1 Condition: Stable pm1 Diagnosis - Calculus of ureter pm1 Followup: pm1 - With: Emergency Department - When: As needed - Reason: Worsening of condition Followup: pm1 - With: Tonny Briscoe MD - When: 2 - 3 days - Reason: Recheck today's complaints, Continuance of care, Re-evaluation by your physician Discharge Instructions: - Discharge Summary Sheet pm1 - Kidney Stones pm1 - Dietary Guidelines to Help Prevent Kidney Stones pm1 Forms: - Medication Reconciliation Form pm1 - Thank You Letter pm1 - Antibiotic Education pm1 - Prescription Opioid Use pm1 Prescriptions: - Flomax 0.4 mg Oral capsule - take 1 capsule by ORAL route once daily 1/2 hour following the same meal each pm1 day; 7 capsule; Refills: 0, Product Selection Permitted - Cipro 500 mg Oral Tablet - take 1 tablet by ORAL route every 12 hours for 7 days; 14 tablet; Refills: 0, pm1 Product Selection Permitted - Tylenol-Codeine #3 300 mg-30 mg Oral - take 2 tablet by ORAL route every 6 hours As needed; 20 tablet; Refills: 0, pm1 Product Selection Permitted - ondansetron 4 mg Oral - take 4 milligrams by SUBLINGUAL route every 8 hours As needed; 12 tablet; pm1 Refills: 0, Product Selection Permitted Signatures: Dispatcher [employer] Matilde Goodman RN RN Susan Carter RN RN ph Filipe Wade, DELMI SPOT CHECKER pm1 Marbin Honeycutt MD MD rt
--- NOTE | 2022-10-09 15:40 | ER ---
Nurse's Notes [facility] Name: Koko Hoff Age: 61 yrs Sex: Male : 1960 Arrival Date: 10/09/2022 Time: 11:55 Bed Treatment Private MD: Diagnosis: Calculus of ureter Presentation: 10/09 12:05 Chief complaint: Patient states: Constant RLQ pain that began this morning with nausea/ ss vomiting. Coronavirus screen: Client denies travel out of the [place] in the last 14 days. Ebola Screen: Patient denies exposure to infectious person. Patient denies travel to an Ebola-affected area in the 21 days before illness onset. Initial Sepsis Screen: Does the patient meet any 2 criteria? No. Patient's initial sepsis screen is negative. Does the patient have a suspected source of infection? No. Patient's initial sepsis screen is negative. Risk Assessment: Do you want to hurt yourself or someone else? Patient reports no desire to harm self or others. Onset of symptoms was October 09, 2022. 12:05 Method Of Arrival: Ambulatory ss 12:05 Acuity: KALA 3 ss Historical: - Allergies: 12:07 No Known Allergies; ss - Home Meds: 12:07 lisinopril 20 mg Oral tab 1 tab once daily [Active]; ss - PMHx: 12:07 Hypertensive disorder; ss - PSHx: 12:07 Cholecystectomy; ss - Immunization history:: Adult Immunizations unknown. - Social history:: Smoking status: Patient denies any tobacco usage or history of. Screenin:01 [facility] ED Fall Risk Assessment (Adult) History of falling in the last 3 months, ph including since admission No falls in past 3 months (0 pts) Confusion or Disorientation No (0 pts) Intoxicated or Sedated No (0 pts) Impaired Gait No (0 pts) Mobility Assist Device Used No (0 pt) Altered Elimination No (0 pt) Score/Fall Risk Level 0 - 2 = Low Risk Oriented to surroundings, Maintained a safe environment. Abuse screen: Denies threats or abuse. Denies injuries from another. Nutritional screening: No deficits noted. Tuberculosis screening: No symptoms or risk factors identified. Assessment: 13:00 General: Appears in no apparent distress. comfortable, Behavior is calm, cooperative, ph appropriate for age. Pain: Complains of pain in right lower quadrant. Neuro: Level of Consciousness is awake, alert, obeys commands, Oriented to person, place, time, situation. Cardiovascular: Capillary refill < 3 seconds in bilateral fingers Patient's skin is warm and dry. Respiratory: Airway is patent Respiratory effort is even, unlabored, Respiratory pattern is regular, symmetrical. GI: Abdomen is round Bowel sounds present X 4 quads. Abdomen is tender to palpation in right lower quadrant Reports lower abdominal pain, nausea, vomiting. Derm: Skin is healthy with good turgor, Skin is pink, warm \T\ dry. Vital Signs: 12:05 BP 152 / 80; Pulse 61; Resp 16; Temp 98.3(O); Pulse Ox 100% on R/A; Weight 99.79 kg; ss Height 5 ft. 10 in. (177.80 cm); Pain 5/10; 13:00 BP 140 / 66; Pulse 68; Resp 18; Pulse Ox 100% on R/A; ph 15:52 BP 138 / 72; Pulse 69; Resp 18; Temp 97.9; Pulse Ox 99% on R/A; ph 12:05 Body Mass Index 31.57 (99.79 kg, 177.80 cm) ED Course: 11:55 Patient arrived in ED. am2 12:07 Triage completed. ss 12:07 Arm band placed on right wrist. ss 12:10 Filipe Wade NP is PHCP. pm1 12:11 Marbin Honeycutt MD is Attending Physician. pm1 12:42 CBC with Diff Sent. rs5 12:42 CMP Sent. rs5 12:42 Lipase Sent. rs5 12:43 Susan Carter, RN is Primary Nurse. ph 12:43 Inserted saline lock: 20 gauge in left antecubital area, using aseptic technique. Blood rs5 collected. 13:01 Patient has correct armband on for positive identification. Bed in low position. Call ph light in reach. Side rails up X 1. Pulse ox on. NIBP on. Door closed. Noise minimized. Warm blanket given. 13:44 CT Abd/Pelvis - IV Contrast Only In Process Unspecified. EDMS 15:39 Tonny Briscoe MD is Referral Physician. pm1 15:51 No provider procedures requiring assistance completed. IV discontinued, intact, ph bleeding controlled, No redness/swelling at site. Pressure dressing applied. Administered Medications: 12:55 Drug: NS 0.9% 1000 ml Route: IV; Rate: 1 bolus; Site: right antecubital; ph 14:00 Follow up: Response: No adverse reaction; IV Status: Completed infusion ph 12:55 Drug: Zofran (Ondansetron) 4 mg Route: IVP; Site: right antecubital; ph 14:00 Follow up: Response: No adverse reaction ph 12:57 Drug: morphine 4 mg Route: IVP; Infused Over: 4 mins; Site: right antecubital; ph 14:00 Follow up: Response: No adverse reaction ph 15:17 Drug: Flomax (tamsulosin) 0.4 mg Route: PO; ph 16:00 Follow up: Response: No adverse reaction ph Medication: 13:01 VIS not applicable for this client. ph Outcome: 15:39 Discharge ordered by . pm1 15:51 Discharged to home ambulatory, with significant other. ph 15:51 Condition: good 15:51 Discharge instructions given to patient, significant other, Instructed on discharge instructions, follow up and referral plans. medication usage, Demonstrated understanding of instructions, follow-up care, medications, Prescriptions given X 4. 15:52 Patient left the ED. ph Signatures: Dispatcher [employer] EDMS Matilde Randolph RN RN ss Hall, Patricia, RN RN ph Marinas, Patrick, DELMI WOOLING MACHINE OPERATOR pm1 Leona Leger am2 Gurvinder Mclaughlin rs5
[2022-10-09 16:16] VITALS: BP 138/72; TEMP 97.9; O2SAT 99
== END 2022-10-09 15:52 | disposition home or self-care (01) ==
LOC: ER 11:42
DX: N20.1 Calculus of ureter (principal); I10 Essential (primary) hypertension
CPT/HCPCS: 85025; 36415; 81003; 83690; 80053; 74177; Q9967; J7030; J2405